=== PATIENT | female | born 1960 | race Caucasian/White ===

== ENCOUNTER → 2016-09-03 | Outpatient (REF) | payer OTHER ==
[2016-09-03 12:06] LABS: INR 0.99
== END ==
LOC: M LABDRAW1 11:03
PROVIDERS: ATTEND Physical Medicine & Rehabilitation
DX: Z01.818 Encounter for other preprocedural examination (principal); M48.06 Spinal stenosis, lumbar region

== ENCOUNTER → 2017-03-04 | Outpatient (CLI) | payer OTHER ==
--- NOTE | 2017-03-04 12:46 | REP ---
Clinical: Trauma. Technique: AP, lateral, bilateral oblique and sunrise views of the left knee. Comparison: 12/04/2015. Findings: Soft tissue swelling is appreciated and suprapatellar effusion is identified. Oblique and sunrise views suggest the possibility of a very small and subtle nondisplaced fracture involving the medial aspect of the patella. Remainder of the examination appears normal. Impression: Cannot exclude very subtle nondisplaced fracture along the medial aspect of the patella with effusion. Signed by Vinh Moulton MD 03/04/2017 12:37 P
== END ==
LOC: M LRY 11:58
PROVIDERS: ATTEND Physician Assistant
DX: M25.562 Pain in left knee (principal); M25.462 Effusion, left knee

== ENCOUNTER → 2017-09-01 | Outpatient (CLI) | payer OTHER | LOC: M RAD 13:58 | DX: R07.9 Chest pain, unspecified (principal); R06.02 Shortness of breath | CPT/HCPCS: 71046 ==

== ENCOUNTER → 2018-06-09 | Outpatient (CLI) | payer OTHER | LOC: M RAD 13:13 | DX: R07.9 Chest pain, unspecified (principal) | CPT/HCPCS: 71046 ==

== ENCOUNTER → 2018-10-16 | Outpatient (CLI) | payer OTHER ==
[2018-10-16 11:48] LABS: FREE T4 0.83 NG/DL (0.76-1.46); THYROID STIMULATING HORMONE 0.461 uIU/ML (0.358-3.740)
== END ==
LOC: M LAB 10:41
PROVIDERS: ATTEND Physician Assistant
DX: F33.1 Major depressive disorder, recurrent, moderate (principal)

== ENCOUNTER → 2018-11-08 | Outpatient (REF) ==
--- NOTE | 2018-11-09 03:29 | REP ---
Clinical: Pain and disability. Technique: AP, lateral, coned-down views of the lumbosacral spine. Findings: Frontal view suggests mild chronic scoliosis. 2 mm anterolisthesis at the L4-5 level is suggested. Endplate sclerosis with minimal disc space narrowing and hypertrophic facet changes are identified at L4-5 and L5-L1. Mild/moderate age-related changes are identified involving the remaining visualized lower thoracic through the mid lumbar spine. No acute fracture / compression injury. Impression: Mild/moderate degenerative changes as noted above. Electronically Signed by Vinh Moulton MD 11/09/2018 03:20 A
== END ==
LOC: M SMT 13:28
PROVIDERS: ATTEND Internal Medicine
DX: Z02.71 Encounter for disability determination (principal)

== ENCOUNTER → 2018-12-13 | Outpatient (CLI) | payer OTHER ==
[2018-12-13 16:53] LABS: INR 0.94; PARTIAL THROMBOPLASTIN TIME 34.7 SECONDS (25.4-37.6); PROTHROMBIN TIME 12.7 SECONDS (12.1-14.4)
[2018-12-13 17:01] LABS: COLLAGEN EPINEPHRINE 128 SECONDS (74-162)
== END ==
LOC: M LRY 15:06
PROVIDERS: ATTEND Physician Assistant Surgical
DX: Z79.01 Long term (current) use of anticoagulants (principal)

== ENCOUNTER 2019-01-04 11:40 | Emergency (ER) | payer OTHER ==
[~2019-01-04] VITALS: Ht 162.6 cm; Wt 73.4 kg
[2019-01-04] MEDS ORDERED: GABA600T4 (11:53)
[2019-01-04] MEDS ORDERED: HYDR25TAB (11:53)
[2019-01-04] MEDS ORDERED: PANT40TA3 (11:53)
[2019-01-04] MEDS ORDERED: DULO1CAP3 (11:53)
[2019-01-04] MEDS ORDERED: LEVO88TA3 (11:53)
[2019-01-04] MEDS ORDERED: KLOR10TA76 (11:53)
[2019-01-04] MEDS ORDERED: LIOT5TAB (11:53)
[2019-01-04] MEDS ORDERED: TOPI25TA10 (11:53)
[2019-01-04 12:38] LABS: BASO % 0.6 % (0.0-1.0); EOS # 0.1 10^3/uL (0.0-0.50); EOS % 2.9 % (0.0-3.0); HEMATOCRIT 40.3 % (36.0-47.0); LYMPH # 1.8 10^3/uL (1.5-4.5); LYMPH % 37.7 % (24.0-44.0); MEAN CORPUSCULAR HEMOGLOBIN 31.8 pg (27.0-33.0); MEAN CORPUSCULAR HGB CONC 34.7 g/dl (32.0-36.5); MEAN CORPUSCULAR VOLUME 91.6 fl (80.0-96.0); MONO # 0.4 10^3/uL (0.0-0.8); MONO % 8.2 % (0.0-5.0); NEUTROPHILS # 2.5 10^3/uL (1.8-7.7); NEUTROPHILS % 50.4 % (36.0-66.0); PLATELET COUNT, AUTOMATED 272 10^3/uL (150-450); WHITE BLOOD COUNT 4.9 10^3/uL (4.0-10.0)
--- NOTE | 2019-01-04 12:39 | REP ---
PORTABLE CHEST X-RAY: Single view. HISTORY: Chest pain. COMPARISON STUDY: June 09, 2018. FINDINGS: EKG monitoring electrodes are seen. The lungs are symmetrically aerated and clear. Pleural angles are sharp. Heart size is normal. The aorta is somewhat tortuous. There are surgical clips in the left thyroid bed. IMPRESSION: No active disease. Electronically Signed by Mckay Burleson MD 01/04/2019 01:16 P
[2019-01-04 13:13] LABS: BLOOD UREA NITROGEN 18 MG/DL (7-18); CALCIUM LEVEL 8.8 MG/DL (8.5-10.1); CARBON DIOXIDE LEVEL 29 MEQ/L (21-32); CHLORIDE LEVEL 105 MEQ/L (98-107); CPK CREATINE PHOSPHOKINASE 147 U/L (26-192); CREATININE FOR GFR 0.89 MG/DL (0.55-1.30); GLOMERULAR FILTRATION RATE > 60.0 (>51); GLUCOSE, FASTING 84 MG/DL (70-100); MB/CK RELATIVE INDEX 1.02 (< OR =4); POTASSIUM SERUM 3.1 MEQ/L (3.5-5.1); SODIUM LEVEL 140 MEQ/L (136-145); TROPONIN I < 0.02 NG/ML (< 0.10)
[2019-01-04] MEDS ORDERED: ISOVUE-370 76% 100ML VIAL (Q9967) As Ordered ONE (13:19)
--- NOTE | 2019-01-04 14:04 | REP ---
CT PULMONARY ANGIOGRAM: With IV contrast. HISTORY: Chest pain and shortness of breath. Prolonged immobility. COMPARISON STUDIES: No comparison chest CT. CONTRAST DOSE: 75 mL of Isovue [address] TECHNIQUE: Helical scanning is acquired and overlapping 1.5 mm and contiguous 3 mm axial images are reformatted. In addition, maximum intensity projection and multiplanar re-formation images are generated in sagittal and coronal imaging projections. CT PULMONARY ANGIOGRAPHIC FINDINGS: There is good opacification of the pulmonary arterial tree and there is no CT evidence of pulmonary embolism. No vessel cutoff or filling defect is seen on maximal intensity projection images. The thoracic aorta enhances homogeneously and is normal in course and caliber. No aneurysm or dissection is seen. No hilar or mediastinal adenopathy or mass is seen. No pleural or pericardial effusion is appreciated. No adrenal lesion is seen. There are clips in the gallbladder fossa. The visualized upper abdominal structures are otherwise unremarkable. On lung window settings, there is no evidence of infiltrate, mass, or significant atelectasis. There is an 8 mm noncalcified pulmonary nodule in the right upper lobe in a perihilar position. This projects on page 41 of 85 in series 402 of today's study. No other significant pulmonary nodule is appreciated. There is a granulomatous calcification in the right upper lobe. IMPRESSION: 1. No CT evidence of pulmonary embolus. 2. 8 mm noncalcified pulmonary nodule in the right upper lobe. This may warrant further evaluation. Consider pulmonary medicine evaluation. Followup CT study suggested in 3 months. Electronically Signed by Mckay Burleson MD 01/04/2019 03:12 P
[2019-01-04] MEDS ORDERED: ZITH500T PO (14:44)
[2019-01-04] MEDS ORDERED: ALBU17IN2 INH (14:44)
[2019-01-04] MEDS ORDERED: MEDR4PAK PO (14:44)
[2019-01-04] MEDS ORDERED: methylPREDNISolone INJ 125 MG/2 ML VIAL (J2930) IV ONE (14:45)
[2019-01-04] MEDS ORDERED: POTASSIUM CHLORIDE 10 MEQ SR TABLET PO ONE (15:00)
[2019-01-04 15:15] VITALS: BP 110/73
--- NOTE | 2019-01-05 07:18 | ECGEPIP ---
Stationary ECG Study [facility] - ED Test Date: 2019-01-04 Pat Name: BRE CHING Department: Room: - Gender: F Silk [employer]: [facility] : 1960 Requested By: FELIZ FRANCO Order Number: [id number] Reading MD: Kingston Cobb Measurements Intervals [place] Rate: 74 P: 17 VT: 144 QRS: 69 QRSD: 84 T: 34 QT: 369 QTc: 411 Interpretive Statements SINUS RHYTHM NONSPECIFIC ST & T-WAVE ABNORMALITY NO PRIORS FOR COMPARISON Electronically Signed On 01-05-2019 7:18:15 EDT by Kingston Cobb
== END 2019-01-04 15:33 | disposition home or self-care (01) ==
LOC: M ED 11:40
DX: J40 Bronchitis, not specified as acute or chronic (principal); E07.9 Disorder of thyroid, unspecified; Z79.899 Other long term (current) drug therapy; Z79.890 Hormone replacement therapy; J30.89 Other allergic rhinitis
CPT/HCPCS: 71045; 71275; 80048; 82550; 82553; 85025; 93005; 93041; 94760; 96374; 99285; J2930; Q9967

== ENCOUNTER → 2019-01-17 | Outpatient (CLI) | payer OTHER ==
[~2019-01-17] MED LIST: ALBU17IN2 INH; DULO1CAP3; GABA600T4; HYDR25TAB; KLOR10TA76; LEVO88TA3; LIOT5TAB; MEDR4PAK PO; PANT40TA3; TOPI25TA10; ZITH500T PO
[2019-01-23 14:13] LABS: ANCA-ATYPICAL <1:20 titer (Neg:<1:20); ANTI DS-DNA AB <1:10 titer (.); ANTINUCLEAR ANTIBODIES DIRECT Negative (Negative); CYCLIC CITRULLINATED PEPTIDE 6 units (0-19); CYTOPLASMIC NEUTROP AB ANCA-C <1:20 titer (Neg:<1:20); PERINUCLEAR AB ANCA-P <1:20 titer (Neg:<1:20); RNP ANTIBODIES <0.2 AI (0.0-0.9); SJOGREN'S ANTI SS-A <0.2 AI (0.0-0.9); SJOGREN'S ANTI SS-B <0.2 AI (0.0-0.9); SMITH ANTIBODIES <0.2 AI (0.0-0.9)
== END ==
LOC: M SMT 10:54
PROVIDERS: ATTEND Internal Medicine Pulmonary Disease
DX: R91.1 Solitary pulmonary nodule (principal)

== ENCOUNTER → 2019-04-26 | Outpatient (CLI) | payer OTHER ==
[~2019-04-26] MED LIST changes: -ALBU17IN2 INH; -DULO1CAP3; +DULO1CAP6; +PROV108A INH
== END ==
LOC: M RAD 12:41
PROVIDERS: ATTEND Internal Medicine Pulmonary Disease
DX: R91.1 Solitary pulmonary nodule (principal)

== ENCOUNTER → 2019-07-25 | Outpatient (REF) | payer OTHER ==
[~2019-07-25] MED LIST changes: -LIOT5TAB; +LIOT5TAB6
[2019-07-27 16:45] LABS: CHLAMYDIA DNA AMPLIFICATION NEGATIVE (NEGATIVE); GC DNA AMPLIFICATION NEGATIVE (NEGATIVE)
== END ==
LOC: M SFHCLERA 21:05
PROVIDERS: ATTEND Nurse Practitioner Family
DX: N30.01 Acute cystitis with hematuria (principal)

== ENCOUNTER → 2019-08-31 | Outpatient (CLI) | payer OTHER ==
--- NOTE | 2019-08-31 11:22 | REP ---
MRI lumbar spine: 08/31/2019. Indication: Low back pain. Comparison: No previous MRI studies are available for direct comparison. Technique: Multiplanar short and long TR sequences of the lumbar spine were obtained without IV Gadolinium. Findings: There is very minimal anterolisthesis of L4 on L5 secondary to facet arthropathy. Minimal levoscoliosis of the lumbar spine is present with the convexity centered at L3/L4. No worrisome marrow or cord signal abnormalities are present. Multiple areas of fatty marrow are noted within the vertebral bodies. Small chronic Schmorl's nodes are present within L1, L2 and L3. No significant paraspinal soft tissue abnormalities are present. L1/L2: Disc dessication is present without annular fissure or focal disc herniation. There is no significant spinal canal / neural foraminal narrowing. L2/L3 and L3/L4: Disc dessication is present with mild diffuse disc bulges. No focal disc herniations are present. There is no significant spinal canal / neural foraminal narrowing. L4/L5: Diffuse disc uncovering/bulge and bilateral facet arthropathy are present with mild spinal canal and neural foraminal narrowing. L5/S1: There is no focal disc herniation or significant spinal canal / neural foraminal narrowing. Impression: Degenerative lumbar spine sequelae as described without focal disc herniation or significant spinal canal / neural foraminal narrowing. Electronically Signed by En Posey DO 08/31/2019 11:13 A
== END ==
LOC: M PLARAD 08:30
PROVIDERS: ATTEND Physician Assistant
DX: M47.27 Other spondylosis with radiculopathy, lumbosacral region (principal); M51.16 Intervertebral disc disorders with radiculopathy, lumbar region